=== PATIENT | female | born 1990 | race Caucasian/White ===

== ENCOUNTER 2016-12-23 00:08 | Inpatient (IN) | payer BC ==
[~2016-12-23] VITALS: Ht 170.2 cm; Wt 89.1 kg
[2016-12-23] VITALS (19 sets, daily range): BP systolic 83–145; BP diastolic 50–92; PULSE 65–126; TEMP 98.1–98.7
[~2016-12-23 00:08] MED LIST: PRENATAL1 TA1 PO; SLOW FE45 MG PO
[2016-12-23 03:44] LABS: BASO # 0.1 (0.0-0.2); BASO % 0.4 % (0.0-2.0); EOS # 0.1 (0.0-0.7); GRAN % 69.6 % (42.2-75.2); HEMATOCRIT 38.4 % (37.0-47.0); HEMOGLOBIN 12.9 g/dl (12.5-16.0); LYMPH # 3.1 (1.2-3.4); LYMPH % 23.6 % (20.0-51.0); MEAN CELL VOLUME 87 fl (80.0-100.0); MEAN CORPUSCULAR HEMOGLOBIN 29 pg (27.0-31.0); MEAN CORPUSCULAR HGB CONC 34 g/dl (33.0-37.0); MEAN PLATELET VOLUME 11.6 fl (7.4-10.4); MONO # 0.6 (0.1-0.6); MONO % 4.8 % (1.7-9.3); PLATELET COUNT 241 K/mm3 (130-400); RED BLOOD COUNT 4.44 M/mm3 (4.10-5.30); REDCELL DISTRIBUTION WIDTH-CV 13.3 % (11.5-14.5)
[2016-12-24 07:00] VITALS: BP 123/58; PULSE 96; TEMP 97.8
[2016-12-24] MEDS ORDERED: IBU800 M1 PO (13:37)
== END 2016-12-24 14:11 | disposition home or self-care (01) | DRG 775 ==
LOC: LDRO 00:08 → LDR 02:10 → OB 08:15 → LDRO 01-08 08:38
PROVIDERS: Obstetrics & Gynecology
PROC: 10E0XZZ Delivery of Products of Conception, External Approach (ICD-10-PCS; principal; 2016-12-23)
PROC: 0HQ9XZZ Repair Perineum Skin, External Approach (ICD-10-PCS; 2016-12-23)
DX: O70.0 First degree perineal laceration during delivery (principal); Z3A.37 37 weeks gestation of pregnancy; Z37.0 Single live birth
CPT/HCPCS: J2590; J7120